=== PATIENT | female | born 1980 | race Caucasian/White ===

== ENCOUNTER 2017-02-12 13:18 | Emergency (ER) | payer BC ==
[2017-02-12 13:32] VITALS: BP 131/81; BMI 25.4
--- NOTE | 2017-02-12 14:05 | DR.GENAD ---
HPI - PCP Primary Care Physician: Davis Ferrell) - HPI Comment HPI Comment: PAIN GETTING WORSE. DIFFICULTY BEARING WEIGHT. - Complaint/Symptoms Chief Complaint Doctors Comments: PAIN RIGHT FOOT TIMES 3 WEEKS. Chief Complaint:: Pt states her right foot is swelling and is painful. States this has been going on for about 3 weeks - Nurses notes reviewed Nurses Notes Review: Yes - Source History Provided: Patient - Mode of Arrival Mode of Arrival: Ambulatory - Timing Onset of Chief Complaint: 01/22/17 Came on: Gradually - Duration Duration: Constant Duration: Weeks PMH - PMH Past Medical History: No Past Medical History: Depression Past Surgical History: Yes Surgical History: Hysterectomy, Ortho Surgery Past Surgical History Comment: back surgery - Family History History of Family Medical Conditions: Yes Family Medical History: Diabetes Mellitus, Coronary Artery Disease - Social History Does patient currently use any type of tobacco product: Yes Have you used tobacco products in the last 12 months: Yes Type of Tobacco Use: Cigarettes How many years tobacco product used: 10 Does any household member use tobacco: No Alcohol Use: None Do you use any recreational Drugs:: No Lives With: Spouse Lives Where: Home - infectious screening In the last 2 months have you had wt loss of >10#?: NO Have you had fever, night sweats or hemotysis?: No Have you traveled outside the country in the last 6 months?: No Isolation: Standard ROS - Review of Systems Constitutional: No Symptoms Reported Eyes: No Symptoms Reported ENTM: No Symptoms Reported Respiratoy: No Symptoms Reported Cardiovascular: No Symptoms Reported Gastrointestinal/Abdominal: No Symptoms Reported Genitourinary: No Symptoms Reported Neurological: No Symptoms Reported Musculoskeletal: Right, Foot Integumentary: No Symptoms Reported Hematologic/Lymphatic: No Symptoms Reported Endocrine: No Symptoms Reported All Other Systems: Reviewed and Negative PE - Vital Signs Vitals: Temperature 98.7 F Pulse Rate 86 Respiratory Rate 20 Blood Pressure 131/81 O2 Sat by Pulse Oximetry 96 - General Limitations: No Limitations General Appearance: Alert - Head Head Exam: Normal Inspection - Eyes Eye exam: Normal Appearance - ENT ENT Exam: Normal External Ear Exam External Ear Exam: Normal External Inspection - Neck Neck Exam: Normal Inspection - Chest Chest Inspection: Symmetric Chest Wall Rise - Respiratory Respiratory Exam: Normal Lung Sounds Bilat Respiratory Exam: Bilateral Clear to Auscultation - Cardiovascular Cardiovascular Exam: Regular Rate, Normal Rhythm, Normal Heart Sounds - Abdominal Exam Abdominal Exam: Normal Inspection - Extremities Extremities Exam: Tenderness (RIGHT FOOT WITH MILD SWELLING.) - Back Back Exam: Normal Inspection - Neurologic Neurological Exam: Alert, Oriented X3 - Psychiatric Psychiatric Exam: Normal Affect, Normal Mood - Skin Skin Exam: Normal Color MDM - Additional Information Additional Information Obtained From: Old Records (FRACTURE, CONTUSION, SPRAIN) Course - Treatment Treatment: SEE REPORT - Education/Counseling Education/Counseling: Patient, Education Educated On: Diagnosis, Needs for Follow Up ROR - XRAY XRAY Findings: REPORT DISCUSS WITH PATIENT - Diagnosis Discharge Problem: Right foot sprain Qualifiers: Encounter type: initial encounter Qualified Code(s): S93.601A - Unspecified sprain of right foot, initial encounter - Discharge Plan Disposition: HOME, SELF-CARE Condition: Stable Prescriptions: Acetaminophen/Codeine Tab [TYLENOL w/CODEINE #3 (300 MG/30 MG) *] 1 tab PO Q4- 6H PRN #15 tab PRN Reason: Pain Ibuprofen [MOTRIN TAB 600 MG *] 600 mg PO TID PRN #20 tab PRN Reason: Pain/Inflammation - Follow ups/Referrals Follow ups/Referrals: [facility],None [Primary Care Provider] - 3 days LESLIE STEPHENSON [STAFF PHYSICIAN] - 3 days - Instructions Instructions: Foot Sprain Additional Instructions: RETURN TO ED IF WORSE.
[2017-02-12] MEDS ORDERED: TORADOL 60 MG VIAL IM ONE (14:24)
--- NOTE | 2017-02-12 14:26 | RAD ---
HISTORY: Foot pain Study: Complete series right foot. Comparison: None Findings: No acute fracture, subluxation, or dislocation is identified. The Lisfranc joint is intact. No erosi ve changes are seen to suggest inflammatory arthritis. No lytic bony lesion or bone forming lesion i s evident. Mild dorsal foot swelling and edema is observed. The remaining visualized portions of th e talus and calcaneus are unremarkable. No radiopaque foreign body is seen. Should the patient's cli nical symptoms persist, followup MR imaging of the right foot suggested. IMPRESSION: 1. Negative foot radiographic exam for acute bony injury. Reported By:
[2017-02-12] MEDS ORDERED: TORADOL 60 MG VIAL ONE (14:29)
== END 2017-02-12 15:15 | disposition home or self-care (01) ==
LOC: ER 13:22
DX: S93.601A Unspecified sprain of right foot, initial encounter (principal); Y33.XXXA Other specified events, undetermined intent, initial encounter; Y92.9 Unspecified place or not applicable
CPT/HCPCS: 73630; 96372; 99282; 99283; J1885